=== PATIENT | female | born 1945 | race Caucasian/White ===

== ENCOUNTER → 2016-06-22 | Outpatient (CLI) | payer OTHER, MEDICARE ==
[~2016-06-22] MED LIST: ABILIFY2 MG PO; ACETAMINOPHEN PO; ALBUTEROL17 GM INH; AMITRIPTYLINE H50 MG PO; AMITRYPTYLINE; AMITRYPTYLINE PO; ANTI-DIARRHEAL2 M1 PO; ANTIDIARRHEAL2 MG PO; ASPIRIN325 M1 PO; ASPIRIN81 M1 PO; ASPIRIN81 M2 PO; ASPIRIN81 MG PO; BENTYL20 MG; BRILINTA90 MG PO; CIPRO PO; CLARITIN D PO; CLARITIN10 MG PO; CLEOCIN HCL300 M1 PO; CLOPIDOGREL75 MG PO; COREG3.125 M1 PO; DESYREL100 MG PO; DITROPAN XL5 M2 PO; DITROPAN5 MG PO; DYAZIDE 37.5/251 CAP; DYAZIDE 37.5/251 CAP PO; GLUCOPHAGE XR500 MG; GLUCOPHAGE XR500 MG PO; GLUCOTROL PO; GLYNASE PO; HUMALOG MI100 UNIT/2; HUMALOG MIX 75/10 ML SUBQ; HUMALOG MIX 75/23 ML SUBQ; HUMALOG100 U/M2 SUBQ; HUMALOG100 UNIT/1 SUBQ; HUMULIN 70100 UNIT/1 SUBQ; HYDROCHLOROTHIA25 MG PO; HYDROXYZINE HCL25 M1 PO; IBUPROFEN PO; IMDUR PO; IMDUR-ER30 M1 PO; JANUVIA50 MG PO; JENTADUETO 2.51 EAC2 PO; LAMICTAL PO; LAMICTAL XR200 MG PO; LAMICTAL100 MG PO; LAMICTAL150 MG PO; LAMOTRIGINE200 MG PO; LASIX PO; LIPITOR80 MG PO; LISINOPRIL; LISINOPRIL PO; LISINOPRIL10 MG PO; LISINOPRIL20 MG PO; LITHIUM CARBON300 M2 PO; LOMOTIL 2.5-0.1 EACH PO; LOMOTIL WHITE2.5 M1 PO; LORTAB 7.5-5001 TAB; LORTAB 7.5-5001 TAB PO; METFORMIN HCL500 M1 PO; METFORMIN PO; METOPROLOL TART25 MG PO; MILK OF MAGNESIA PO; NEURONTIN; NEURONTIN PO; NEURONTIN300 MG PO; NEURONTIN600 MG PO; NEXIUM PO; NITROGLYCERIN0.4 MG PO; NITROGLYGERIN0.4 MG SL; NORVASC PO; PATIENT'S PHARMACY; PAXIL PO; PERCOCET 5-3251 TAB PO; PRAVACHOL PO; PRAVASTATIN SOD20 MG PO; PRINIVIL10 MG PO; PRINIVIL20 M1 PO; SEROQUEL XR300 MG PO; SIMVASTATIN40 MG PO; TRAZODONE HCL150 MG PO; ULTRAM PO; VICODIN PO; VITAMIN D50000 UNIT PO; ZOFRAN ODT4 MG SL; ZOFRAN ODT4 MG/UDTAB PO
[2016-06-22 16:57] LABS: CHOLESTEROL 210 mg/dL (0-200); GLUCOSE FASTING 155 mg/dL (70-110); HDL CHOLESTEROL 39 mg/dL (35-95); LDL CHOLESTEROL 123 mg/dL (-130); LDL/HDL RATIO 3 RATIO (0-4); TRIGLYCERIDES 238 mg/dL (10-160)
== END | disposition home or self-care (01) ==
LOC: CLAB 14:18
DX: I21.4 Non-ST elevation (NSTEMI) myocardial infarction (principal)
CPT/HCPCS: 36415; 80061; 82947; 83036; 86140

== ENCOUNTER 2016-08-10 13:25 | Emergency (ER) | payer OTHER, MEDICARE ==
[2016-08-10 13:15] LABS: BASOPHIL% 0.6 % (0-2.5); EOSINOPHIL# 0.2 X10e3 (0-0.7); EOSINOPHIL% 4.4 % (0.0-7.0); HEMATOCRIT 37.8 % (35.0-45.0); HEMOGLOBIN 12.3 gm/dL (12.0-16.0); LYMPHOCYTE# 1.8 X10e3 (1.0-3.5); LYMPHOCYTE% 39.4 % (17.0-45.0); MEAN CELL VOLUME 97.3 FL (83-96); MEAN CORPUSCULAR HEMOGLOBIN 31.6 PG (28-34); MEAN CORPUSCULAR HGB CONC 32.5 g/dL (30-36); MEAN PLATELET VOLUME 7.3 FL (6.5-11.5); MONOCYTE# 0.4 X10e3 (0-1.0); MONOCYTE% 8.6 % (3.0-12.0); NEUTROPHIL# 2.2 X10e3 (1.5-7.1); PLATELET COUNT 201 X10e3 (140-420); RED BLOOD COUNT 3.88 X10e (3.90-5.30); RED CELL DISTRIBUTION WIDTH 14.1 % (11.0-15.5); WHITE BLOOD COUNT 4.6 X10e3 (4.0-10.5)
[2016-08-10 13:16] LABS: DIFF IND NO
[~2016-08-10 13:25] MED LIST changes: -ABILIFY2 MG PO; -ASPIRIN81 M2 PO; -ASPIRIN81 MG PO; -BRILINTA90 MG PO; -CLOPIDOGREL75 MG PO; -COREG3.125 M1 PO; -DITROPAN5 MG PO; -HUMALOG100 UNIT/1 SUBQ; -HYDROCHLOROTHIA25 MG PO; -IMDUR PO; -IMDUR-ER30 M1 PO; -LAMICTAL PO; -LAMICTAL100 MG PO; -LIPITOR80 MG PO; -LOMOTIL 2.5-0.1 EACH PO; -NITROGLYCERIN0.4 MG PO; -NITROGLYGERIN0.4 MG SL; -NORVASC PO; -PATIENT'S PHARMACY; -PRINIVIL10 MG PO; -ZOFRAN ODT4 MG SL
[2016-08-10 13:42] LABS: ALBUMIN SERUM 4.1 g/dL (3.5-5.0); ALKALINE PHOSPHATASE 63 U/L (32-92); ALT (SGPT) 14 U/L (10-40); AST (SGOT) 18 U/L (10-42); BILIRUBIN, DIRECT <0.1 mg/dL (0.0-0.2); BILIRUBIN,INDIRECT 0.5 mg/dL (0.0-0.9); BILIRUBIN,TOTAL 0.6 mg/dL (0.2-2.0); BLOOD UREA NITROGEN 30 mg/dL (9-23); CALCIUM SERUM 9.3 mg/dL (8.4-10.2); CARBON DIOXIDE 24 mmol/L (22-31); CHLORIDE 106 mmol/L (100-111); CREATININE SERUM 1.2 mg/dL (0.6-1.4); GLOM FILT RATE Estimated 46.1 mL/min (>60); GLUCOSE FASTING 144 mg/dL (70-110); POTASSIUM 4.9 mmol/L (3.5-5.1); PROTEIN TOTAL SERUM 7.4 g/dL (6.0-8.3); SODIUM 138 mmol/L (135-145)
== END 2016-08-10 14:04 | disposition home or self-care (01) ==
LOC: CED 13:25
PROVIDERS: Emergency Medicine
DX: Z71.1 Person with feared health complaint in whom no diagnosis is made (principal); I10 Essential (primary) hypertension; Z90.49 Acquired absence of other specified parts of digestive tract; Z88.2 Allergy status to sulfonamides; Z88.8 Allergy status to other drugs, medicaments and biological substances
CPT/HCPCS: 36415; 80048; 80076; 85025; 99283

== ENCOUNTER 2016-09-10 14:49 | Emergency (ER) | payer OTHER, MEDICARE ==
--- NOTE | ~2016-09-10 | EKG ---
PATIENT: SAE ORTEGA UNIT #: [id number] Ventricular Rate: 58 BPM Atrial Rate: 58 BPM P-R Interval: 152 ms QRS Duration: 84 ms Q-T Interval: 406 ms QTC Calculation(Bezet): 398 ms P [place]: 34 degrees Calculated R [place]: -22 degrees Calculated T [place]: 26 degrees Diagnosis Line: Sinus bradycardia Diagnosis Line: Otherwise normal ECG Diagnosis Line: When compared with ECG of 19-APR-2016 14:31, Diagnosis Line: No significant change was found Diagnosis Line: Confirmed by MISAEL HOGAN MD ([id number]) on Diagnosis Line: 09/14/2016 3:11:58 PM INTERPRETING MD: SAMIRA CROWELL
--- NOTE | ~2016-09-10 | EKG ---
PATIENT: SAE ORTEGA UNIT #: [id number] Ventricular Rate: 54 BPM Atrial Rate: 54 BPM P-R Interval: 160 ms QRS Duration: 84 ms Q-T Interval: 430 ms QTC Calculation(Bezet): 407 ms P [place]: 45 degrees Calculated R [place]: -16 degrees Calculated T [place]: 28 degrees Diagnosis Line: Sinus bradycardia Diagnosis Line: Otherwise normal ECG Diagnosis Line: When compared with ECG of 10-SEP-2016 14:49, Diagnosis Line: (unconfirmed) Diagnosis Line: No significant change was found Diagnosis Line: Confirmed by MISAEL HOGAN MD ([id number]) on Diagnosis Line: 09/14/2016 3:12:49 PM INTERPRETING MD: SAMIRA CROWELL
--- NOTE | ~2016-09-10 | CR63 ---
[facility] A Service of [facility] & [facility] RADIOLOGY TEXT RESULTS PATIENT: SAE ORTEGA LOCATION: [facility] : 47 UNIT #: [id number] AGE: [address]: Emanuel Cabello MD SEX: F ORDER DR: [id number] [facility] [address] [place], [place] [address] [id number] E MR#: [id number] Acc #: [id number] NAME: SAE ORTEGA. : 1945 SEX: F STUDY DATE/TIME: 09/10/2016 17:23 UNIT: [facility] ROOM: STUDY DESCRIPTION: CR Chest 2 View Attending Physician: Emanuel Cabello M.D. Ordering Physician: Emanuel Cabello M.D. Primary Care Physician: Amirah Fernandez M.D. MEDICAL IMAGING REPORT This report is preliminary unless electronic signature is present EXAM PA and lateral chest 09/10/2016 at 17:23 HISTORY Chest pain. Pinching of the heart. Symptoms have been present for 2 days. Additional history of shortness of breath. TECHNIQUE AP portable chest 04/19/2016. FINDINGS Clear lungs. Normal heart size and no pleural effusion or pneumothorax. Degenerative endplate spurring in the thoracic spine. Post spinal fusion changes lumbar spine. No acute osseous abnormality. IMPRESSION 1. No acute cardiopulmonary findings. Dictated by... Rita Bravo M.D. THIS IS AN ELECTRONICALLY VERIFIED REPORT Rita Bravo M.D. at 09/14/2016 8:40 AM LLH/prabhakar TD: 09/10/2016 23:19 JOB #: [id number] MEDICAL IMAGING REPORT Page 1 of 1 COPY
[2016-09-10 15:55] LABS: BASOPHIL% 0.5 % (0-2.5); EOSINOPHIL# 0.2 X10e3 (0-0.7); HEMATOCRIT 38.7 % (35.0-45.0); HEMOGLOBIN 12.8 gm/dL (12.0-16.0); LYMPHOCYTE# 2.3 X10e3 (1.0-3.5); LYMPHOCYTE% 39.7 % (17.0-45.0); MEAN CELL VOLUME 98.6 FL (83-96); MEAN CORPUSCULAR HEMOGLOBIN 32.7 PG (28-34); MEAN CORPUSCULAR HGB CONC 33.2 g/dL (30-36); MEAN PLATELET VOLUME 7.5 FL (6.5-11.5); MONOCYTE# 0.5 X10e3 (0-1.0); MONOCYTE% 8.8 % (3.0-12.0); NEUTROPHIL# 2.8 X10e3 (1.5-7.1); PLATELET COUNT 211 X10e3 (140-420); RED BLOOD COUNT 3.92 X10e (3.90-5.30); WHITE BLOOD COUNT 5.9 X10e3 (4.0-10.5)
[2016-09-10 15:58] LABS: DIFF IND NO
[2016-09-10 16:19] LABS: ALKALINE PHOSPHATASE 58 U/L (32-92); ALT (SGPT) 13 U/L (10-40); AST (SGOT) 20 U/L (10-42); BILIRUBIN,TOTAL 0.6 mg/dL (0.2-2.0); BLOOD UREA NITROGEN 21 mg/dL (9-23); CALCIUM SERUM 9.1 mg/dL (8.4-10.2); CARBON DIOXIDE 21 mmol/L (22-31); CHLORIDE 106 mmol/L (100-111); GLOM FILT RATE Estimated 57.5 mL/min (>60); GLUCOSE FASTING 130 mg/dL (70-110); POTASSIUM 4.3 mmol/L (3.5-5.1); SODIUM 137 mmol/L (135-145)
[2016-09-10 16:20] LABS: BILIRUBIN, DIRECT <0.1 mg/dL (0.0-0.2); BILIRUBIN,INDIRECT 0.5 mg/dL (0.0-0.9)
[2016-09-10 16:36] LABS: POC - CKMB <1.0 ng/mL (0.0-7.9); POC - TROPONIN <0.05 ng/mL (<=0.05)
[2016-09-10 19:22] LABS: POC - CKMB 1.3 ng/mL (0.0-7.9); POC - TROPONIN <0.05 ng/mL (<=0.05)
== END 2016-09-10 20:05 | disposition home or self-care (01) ==
LOC: CED 14:49
PROVIDERS: Emergency Medicine
DX: R07.89 Other chest pain (principal); M79.7 Fibromyalgia; E11.9 Type 2 diabetes mellitus without complications; I12.9 Hypertensive chronic kidney disease with stage 1 through stage 4 chronic kidney disease, or unspecified chronic kidney disease; N18.9 Chronic kidney disease, unspecified; E78.5 Hyperlipidemia, unspecified; Z88.2 Allergy status to sulfonamides; Z88.8 Allergy status to other drugs, medicaments and biological substances
CPT/HCPCS: 36415; 71020; 80048; 80076; 82553; 84484; 85025; 93005; 99284

== ENCOUNTER 2016-10-07 18:37 | Inpatient (IN) | payer OTHER, MEDICARE ==
--- NOTE | ~2016-10-07 | CO ---
Unit #: [id number] #: [id number] Patient: SAE ORTEGA [id number] [address] [place], [place] [address] [id number] I MR#: [id number] NAME: SAE ORTEGA. ROOM: 572 Age: 71 Sex: F Admission Date: 10/07/2016 : 1945 Attending Physician: Fouzia Miller M.D. Primary Care Physician: Amirah Fernandez M.D. Requesting Physician: Hayes Leonard M.D. Consultation Date: 10/11/2016 CONSULTATION REPORT REASON FOR CONSULTATION Atypical chest pain. HISTORY OF PRESENTING ILLNESS Ms. Pike is a 71-year-old female. She came with an ST elevation [place] yesterday and had a cardiac procedure done including stent placement. She has continued Brilinta. She continues to have lower chest pain which is constant since the procedure and not related to exercise or feeding. She has no nausea, vomiting or dysphagia. She has mild epigastric discomfort also. She has been constipated and has not had a bowel movement in over a week. Denies any bleeding. PAST HISTORY Significant for: 1. Coronary artery disease. 2. History of GERD. Last EGD in 2014 was noted. 3. History of anxiety. 4. Bipolar disorder. 5. Chronic kidney disease. 6. Diabetes mellitus type 2. 7. She is status post cholecystectomy in 1980. SOCIAL HISTORY Denies smoking or alcohol or drug abuse. FAMILY HISTORY No history of colon cancer in the family. REVIEW OF SYSTEMS A complete ten point review of systems was done which is unremarkable other than as mentioned above. PHYSICAL EXAMINATION VITAL SIGN: Stable, afebrile. No acute distress. HEENT: Pupils equal and reactive. Sclerae anicteric. Oral mucosa moist. NECK: No JVD, no lymphadenopathy. CHEST: Clear to auscultation, a few scattered rhonchi. CARDIOVASCULAR SYSTEM: Regular rate and rhythm. No murmurs. ABDOMEN: Soft, nontender, nondistended. EXTREMITIES: Without clubbing, cyanosis or edema. NEUROLOGICAL: Intact. SKIN: Warm and dry. DIAGNOSTIC STUDIES Unit #: [id number] #: [id number] Patient: SAE ORTEGA LABORATORY: BUN and creatinine 27/1.1. LFTs are normal. Coags are normal. CBC with a hemoglobin of 10.2, dropped from 13.2. Platelet count and white count are normal. ASSESSMENT AND PLAN 1. Patient with what appears to be atypical chest pain after recent myocardial infarction and cardiac procedure. She does have a history of gastroesophageal reflux disease and EGD findings suggested the same in 2013. I will put her on twice a day IV Protonix. Given the recent myocardial infarction, I will avoid, if possible, the upper endoscopy. However, if the patient is persistent or if there is any further drop in hemoglobin, it will be considered. 2. Constipation: Start on MiraLAX. 3. Coronary artery disease, ST elevation myocardial infarction as well as status post stenting. Thank you, Dr. Leonard, for this interesting consult. Will follow along. Dictated by... Tobias Eldridge/nidia TD: 10/13/2016 07:31 JOB #: [id number] CONSULTATION REPORT Page 1 of 1 X Travis Tirado MD CONSULTATION REPORT
--- NOTE | ~2016-10-07 | DS ---
Unit #: [id number] #: [id number] Patient: SAE ORTEGA [id number] [address] [address] [id number] I MR#: [id number] NAME: SAE ORTEGA ROOM: 572 Age: 71 Sex: F Admission Date: 10/07/2016 : 1945 Discharge Date: 10/15/2016 Attending Physician: Fouzia Miller M.D. Primary Care Physician: Amirah Fernandez M.D. DISCHARGE SUMMARY DISCHARGE DIAGNOSES 1. Acute non ST elevation myocardial infarction, status post percutaneous coronary intervention and drug-eluting stent to first obtuse marginal and mid circumflex. 2. Cardiac cath, October 07, 2016, revealed: Left main normal, mid left anterior descending stent was patent, mid circumflex 99%, and right coronary artery was normal. 3. Asymptomatic bradycardia. 4. Recurrent chest pain. 5. Status post esophagogastroduodenoscopy on October 13, 2016, which showed gastritis and small gastric varices. 6. Common bile duct dilatation with a negative gastrointestinal workup, not clinically significant per GI. 7. Hypertension. 8. Hyperlipidemia. 9. Diabetes mellitus. 10. Chronic kidney disease. 11. Obstructive sleep apnea. 12. Echo, October 09, 2016, revealed a left ventricular ejection fraction 50% to 55% and grade 1 diastolic dysfunction. DISCHARGE MEDICATIONS 1. Aspirin 81 mg by mouth once a day. 2. Brilinta 90 mg by mouth twice a day. 3. Nexium 40 mg t.i.d. 4. Imdur 30 mg p.o. once a day. 5. Nitroglycerin sublingual as needed for chest pain. 6. Norvasc 5 mg p.o. once a day. 7. Jentadueto 2.5 mg/1000 mg tablet one by mouth twice a day. 8. Ditropan 5 mg p.o. twice a day. 9. Lisinopril 10 mg p.o. once a day. 10. Humalog subcutaneous a.c. and at bedtime. HOSPITAL COURSE This is a 71-year-old female known to Dr. Leonard with a history of non ST elevation myocardial infarction in February 2016, where she underwent angioplasty with drug-eluting stents to the proximal LAD and first obtuse marginal. She also has a history of hypertension, hyperlipidemia, diabetes, and chronic kidney disease. She presented to the ER with complaints of chest pain intermittently since August, described as substernal chest dull aching pain that radiates to her left shoulder and arm as well as her back and associated with diaphoresis and occasional dyspnea. In addition, she reported some abdominal discomfort and nausea. The chest pain occurred at rest and on exertion. Troponin in the Unit #: [id number] #: [id number] Patient: SAE ORTEGA emergency room was initially 1.16 but peaked at 6.97. Her EKG had septal Q waves that did resolve on repeat EKG. She was given aspirin and heparin and nitroglycerin drips. She was transferred to the intensive care unit with plans for a cardiac cath. On October 08, 2016, she underwent a cardiac cath which revealed normal left main, patent stent in the mid LAD, mid circumflex with 99% stenosis which was the culprit vessel, and RCA was normal. She underwent successful PCI of first obtuse marginal with a 3.0 x 28 Xience drug-eluting stent, post dilation done with 3.5 Noncompliant balloon. Successful POBA of mid left circumflex with 2.0 x 15 NC balloon. Kissing balloon angioplasty of the mid left circumflex and OM-1 with 2.0 x 15 and 2.5 x 15 Noncompliant balloon respectively. Post intervention FILOMENA-3 flow restored in both vessels. Her Plavix was discontinued as she may be a Plavix nonresponder. She was started on Brilinta and will continue aspirin and Brilinta uninterrupted for at least one year as well as high-dose statin. A 2D echocardiogram done on October 09, 2016, revealed a normal ejection fraction of 50% to 55% with grade 1 diastolic dysfunction. She continued to have some substernal epigastric pain with questionable etiology. GI consult was placed. An EGD was done which showed gastritis and small gastric varices. An ultrasound of the abdomen reveled common bile duct dilatation which was deemed not clinically significant per GI. It was recommended she be discharged home on a PPI. She had some asymptomatic bradycardia while sleeping. Patient states she does have a history of sleep apnea but was unable to wear her CPAP machine. Her beta sony was stopped due to her bradycardia. Today, her chest pain has resolved. Her heart rate and blood pressure are stable. She will be discharged home on dual-antiplatelet therapy, statin, CHRISTINE, and calcium channel sony. She will not be discharged on a beta sony due to her bradycardia. We will plan to restart beta sony at a later date if her heart rate increases. She will follow up with Dr. Leonard on November 16 at 3:30. Instructed to follow up with her primary care doctor in two weeks. She is to follow up with Dr. Calle's group who she saw in the past for evaluation of sleep apnea. The patient verbalizes an understanding of this. Cardiac rehab has been consulted. Post cath orders were given to patient as well. Dictated by... Laly Mario APRN for Hayes Leonard M.D. L[place]/maggy TD: 10/18/2016 09:23 JOB #: [id number] DISCHARGE SUMMARY Page 1 of 1 X X DISCHARGE SUMMARY
--- NOTE | ~2016-10-07 | EKG ---
PATIENT: SAE ORTEGA UNIT #: [id number] Ventricular Rate: 57 BPM Atrial Rate: 57 BPM P-R Interval: 166 ms QRS Duration: 96 ms Q-T Interval: 436 ms QTC Calculation(Bezet): 424 ms P [place]: 49 degrees Calculated R [place]: -7 degrees Calculated T [place]: 98 degrees Diagnosis Line: Sinus bradycardia Diagnosis Line: Abnormal QRS-T angle, consider primary T wave Diagnosis Line: abnormality Diagnosis Line: Abnormal ECG Diagnosis Line: When compared with ECG of 09-OCT-2016 17:08, Diagnosis Line: (unconfirmed) Diagnosis Line: No significant change was found Diagnosis Line: Confirmed by ROBBY BARONE MD ([id number]) on Diagnosis Line: 10/10/2016 10:48:03 PM INTERPRETING MD: KJ
--- NOTE | ~2016-10-07 | CR72 ---
[facility] A Service of [facility] & [facility] RADIOLOGY TEXT RESULTS PATIENT: SAE ORTEGA LOCATION: [place] [address] : [birth year] UNIT #: [id number] AGE: [address]: Fouzia Miller MD SEX: F ORDER DR: [id number] [facility] [address] [place], [place] [address] [id number] I MR#: [id number] Acc #: [id number] NAME: SAE ORTEGA. : 1945 SEX: F STUDY DATE/TIME: 10/07/2016 19:38 UNIT: [facility] ROOM: [facility] STUDY DESCRIPTION: CR Chest Single View Portable Attending Physician: Juancarlos Canela Ordering Physician: Caleb Gay Primary Care Physician: Amirah Fernandez M.D. MEDICAL IMAGING REPORT This report is preliminary unless electronic signature is present EXAM Portable chest HISTORY Left side chest pain and left arm pain for 3 days. FINDINGS A single AP portable view of the chest shows both lungs to be clear. The heart is normal in size. The mediastinal contour is normal. No significant bone abnormalities are seen. IMPRESSION Normal portable chest. Dictated by... Darien Gonzalez M.D. THIS IS AN ELECTRONICALLY VERIFIED REPORT Darien Gonzalez M.D. at 10/08/2016 2:36 PM DFElva/helio TD: 10/08/2016 00:51 JOB #: [id number] MEDICAL IMAGING REPORT Page 1 of 1 COPY
--- NOTE | ~2016-10-07 | EKG ---
PATIENT: SAE ORTEGA UNIT #: [id number] Ventricular Rate: 52 BPM Atrial Rate: 52 BPM P-R Interval: 160 ms QRS Duration: 86 ms Q-T Interval: 482 ms QTC Calculation(Bezet): 448 ms P [place]: 56 degrees Calculated R [place]: -5 degrees Calculated T [place]: 84 degrees Diagnosis Line: Sinus bradycardia Diagnosis Line: Low voltage QRS Diagnosis Line: Borderline ECG Diagnosis Line: When compared with ECG of 08-OCT-2016 06:13, Diagnosis Line: (unconfirmed) Diagnosis Line: No significant change was found Diagnosis Line: Confirmed by ROBBY BARONE MD ([id number]) on Diagnosis Line: 10/09/2016 3:00:05 PM INTERPRETING : KJ
--- NOTE | ~2016-10-07 | OR ---
Unit #: [id number] #: [id number] Patient: SAE ORTEGA [id number] [address] [address] [id number] I MR#: [id number] NAME: SAE ORTEGA. ROOM: 572 Date of Procedure: 10/13/2016 Admission Date: 10/07/2016 Surgeon: Travis Tirado M.D. : 1945 Attending Physician: Fouzia Miller M.D. Primary Care Physician: Amirah Fernandez M.D. OPERATIVE REPORT PROCEDURE PERFORMED Esophagogastroduodenoscopy to descending duodenum. INDICATIONS FOR PROCEDURE Atypical chest pain, epigastric discomfort, undergoing evaluation with upper endoscopy. MEDICATIONS Monitored anesthesia. POSTOPERATIVE FINDINGS 1. Normal esophagus. 2. Mild gastritis. 3. Early gastric varices. 4. Normal duodenum and distal duodenum. PLAN 1. Liver workup. 2. PPIs to continue. DESCRIPTION OF PROCEDURE The patient was explained of the procedure, risks, and benefits along with risks and benefits of anesthesia. She was brought to the endoscopy room. Propofol anesthesia was given. Bite block was placed. The scope was passed down the mouth into the esophagus, stomach, duodenum, and distal duodenum. Findings as described. The scope was gently pulled out. She tolerated it well. Dictated by... Tobias Eldridge/tia TD: 10/14/2016 01:31 JOB #: [id number] CC: Hayes Leonard M.D. Unit #: [id number] #: [id number] Patient: SAE ORTEGA OPERATIVE REPORT Page 1 of 1 X Travis Tirado MD X PROCEDURE OPERATIVE NOTE
--- NOTE | ~2016-10-07 | EKG ---
PATIENT: SAE ORTEGA UNIT #: [id number] Ventricular Rate: 55 BPM Atrial Rate: 55 BPM P-R Interval: 148 ms QRS Duration: 86 ms Q-T Interval: 450 ms QTC Calculation(Bezet): 430 ms P [place]: 57 degrees Calculated T [place]: 84 degrees Diagnosis Line: Sinus bradycardia Diagnosis Line: Nonspecific ST abnormality Diagnosis Line: Abnormal ECG Diagnosis Line: When compared with ECG of 08-OCT-2016 17:49, Diagnosis Line: (unconfirmed) Diagnosis Line: No significant change was found Diagnosis Line: Confirmed by ROBBY BARONE MD ([id number]) on Diagnosis Line: 10/10/2016 10:37:10 PM INTERPRETING MD: KJ
--- NOTE | ~2016-10-07 | EKG ---
PATIENT: SAE ORTEGA UNIT #: [id number] Ventricular Rate: 50 BPM Atrial Rate: 50 BPM P-R Interval: 168 ms QRS Duration: 96 ms Q-T Interval: 446 ms QTC Calculation(Bezet): [address]: 51 degrees Calculated R [place] [address]: -6 degrees Calculated T [place] [address]: 85 degrees Diagnosis Line: Sinus bradycardia Diagnosis Line: Otherwise normal ECG Diagnosis Line: When compared with ECG of 10-OCT-2016 07:09, Diagnosis Line: No significant change was found Diagnosis Line: Confirmed by MOOSE VALADEZ MD ([id number]) on 10/12/2016 Diagnosis Line: 5:39:20 AM INTERPRETING MD: RORY CROWELL
--- NOTE | ~2016-10-07 | EKG ---
PATIENT: SAE ORTEGA UNIT #: [id number] Ventricular Rate: 57 BPM Atrial Rate: 57 BPM P-R Interval: 158 ms QRS Duration: 90 ms Q-T Interval: 436 ms QTC Calculation(Bezet): 424 ms P [place]: 50 degrees Calculated R [place]: 3 degrees Calculated T [place]: 87 degrees Diagnosis Line: Sinus bradycardia Diagnosis Line: Low voltage QRS Diagnosis Line: Borderline ECG Diagnosis Line: When compared with ECG of 09-OCT-2016 06:55, Diagnosis Line: (unconfirmed) Diagnosis Line: No significant change was found Diagnosis Line: Confirmed by ROBBY BARONE MD ([id number]) on Diagnosis Line: 10/10/2016 10:39:15 PM INTERPRETING MD: KJ
--- NOTE | ~2016-10-07 | EKG ---
PATIENT: SAE ORTEGA UNIT #: [id number] Ventricular Rate: 52 BPM Atrial Rate: 52 BPM P-R Interval: 158 ms QRS Duration: 86 ms Q-T Interval: 488 ms QTC Calculation(Bezet): 453 ms P [place]: 52 degrees Calculated R [place]: -3 degrees Calculated T [place]: 52 degrees Diagnosis Line: Sinus bradycardia Diagnosis Line: Otherwise normal ECG Diagnosis Line: When compared with ECG of 07-OCT-2016 19:00, Diagnosis Line: QT has lengthened Diagnosis Line: Confirmed by ROBBY BARONE MD ([id number]) on Diagnosis Line: 10/09/2016 2:52:12 PM INTERPRETING MD: KJ
--- NOTE | ~2016-10-07 | US6 ---
[facility] A Service of [facility] & [facility] RADIOLOGY TEXT RESULTS PATIENT: SAE ORTEGA LOCATION: [facility] 572-01 : [birth year] UNIT #: [id number] AGE: [address]: Fouzia Miller MD SEX: F ORDER DR: [id number] [facility] [address] [place], [place] [address] [id number] MR#: [id number] Acc #: [id number] NAME: SAE ORTEGA. : 1945 SEX: F STUDY DATE/TIME: 10/13/2016 14:39 UNIT: [facility] ROOM: [facility] STUDY DESCRIPTION: US Abdominal Limited Attending Physician: Fouzia Miller M.D. Ordering Physician: Travis Tirado M.D. Primary Care Physician: Amirah Fernandez M.D. MEDICAL IMAGING REPORT This report is preliminary unless electronic signature is present EXAM Right upper quadrant ultrasound 10/13/2016 HISTORY Cirrhosis. Observation for hepatocellular carcinoma. Cholecystectomy 20 years ago. FINDINGS The liver demonstrates a somewhat coarsened echotexture but demonstrates no cystic or solid mass lesions. The intrahepatic bile ducts are not dilated. The gallbladder surgically absent as per patient history. The common duct demonstrates post cholecystectomy dilatation to 9 mm. The pancreas and right kidney are normal. IMPRESSION 1. Coarsened liver echotexture. No cystic or solid mass lesions were identified within the liver. 2. Surgical absence of the gallbladder. 3. Post cholecystectomy dilatation of the common bile duct to 9 mm. Dictated by... Paco Nielsen M.D. THIS IS AN ELECTRONICALLY VERIFIED REPORT Paco Nielsen M.D. at 10/15/2016 8:19 AM KRT/to TD: 10/13/2016 17:31 JOB #: [id number] MEDICAL IMAGING REPORT Page 1 of 1 COPY
--- NOTE | ~2016-10-07 | HP ---
Unit #: [id number] #: [id number] Patient: SAE ORTEGA [id number] [facility] [place] [facility]. [place], [place] [address] [id number] MR#: [id number] NAME: SAE ORTEGA. ROOM: [facility] Age: 71 Sex: F Admission Date: 10/07/2016 : 1945 Attending Physician: Giles Canela M.D. Primary Care Physician: Amirah Fernandez M.D. HISTORY AND PHYSICAL HISTORY OF PRESENT ILLNESS This is a 71-year-old white female who is known to Dr. Leonard and has a history of a non ST elevation myocardial infarction in 02/2016 where she underwent angioplasty with drug-eluting stents to the proximal LAD and first obtuse marginal branch. She is known to have hypertension, hyperlipidemia, diabetes, and chronic kidney disease. She presents to the emergency room with a complain of chest pain. Since August she has had intermittent episodes of substernal chest dull aching pain that is radiating to her left shoulder and arm, into her back, associated with diaphoresis and occasional dyspnea. She reports some abdominal discomfort and nausea. Chest pain occurs at rest and on exertion. She was seen in the emergency room in August but there was no elevation of Troponin or EKG changes to suggest an acute event. Over the last three days her chest pain has worsened, prompting her to come to the emergency room for evaluation. In the emergency room initial troponin was 1.16 but peaked at 6.97. Her presenting electrocardiogram shows septal Q waves that resolved on repeat electrocardiogram. She was treated with aspirin and started on heparin and nitroglycerin drip and monitored in the Intensive Care Unit. PAST MEDICAL HISTORY 1. Non ST elevation myocardial infarction 02/2016, status post cardiac catheterization on 03/05/[address] Leonard at [facility], that revealed left main normal, LAD 95% just distal to the diagonal. Circumflex artery first marginal branch with 99% stenosis. Right coronary artery dominant vessel normal. Ejection fraction of 55%. 2. Status post PCI with drug eluting stents to the proximal LAD and first obtuse marginal branch 03/05/[address] Leonard. 3. 2D echocardiogram 03/04/2016 showed an ejection fraction of 60% with impaired left ventricular relaxation. Normal valves. 4. Hypertension. 5. Hyperlipidemia. 6. Diabetes, type 2. 7. Chronic kidney disease. 8. Bipolar disorder. 9. Peripheral neuropathy. 10. Anxiety. 11. Nonsmoker. PAST SURGICAL HISTORY 1. Back surgery. 2. Cervical conization. 3. Cholecystectomy. 4. Tubal ligation. Unit #: [id number] #: [id number] Patient: SAE ORTEGA SOCIAL HISTORY The patient is and retired toddler teacher. She has never smoked. She denies illicit drug and alcohol use. FAMILY HISTORY Father had a permanent pacemaker. Mother had diabetes. No coronary artery disease in her siblings. Had a sister who had a PFO that was repaired. ALLERGIES Sulfa and naproxen. HOME MEDICATIONS 1. Carvedilol 3.125 mg b.i.d. 2. Hydrochlorothiazide 25 mg daily. 3. Lipitor 80 mg q.h.s. 4. Aspirin 81 mg daily. 5. Plavix 75 mg daily. 6. Imdur 30 mg daily. 7. Lomotil 1 tablet q.8 hours p.r.n. 8. Trazodone 150 mg q.h.s. 9. Lamictal 200 mg q.h.s. 10. Nexium 40 mg t.i.d. 11. Zofran 4 mg q.4 hours p.r.n. 12. Ditropan 5 mg b.i.d. 13. Lisinopril 20 mg daily. 14. Linagliptin/metformin 2.08/999 mg b.i.d. 15. Humalog per sliding scale a.c. and h.s. REVIEW OF SYSTEMS CONSTITUTIONAL: No complain of fever or chills. Has no weight gain or weight loss. HEENT: No headache or visual changes. Difficult swallowing. Negative for dizziness. CARDIOVASCULAR: Has chest pain as described in HPI. Denies palpitations. No paroxysmal nocturnal dyspnea or orthopnea. Denies syncope or near syncope. RESPIRATORY: Reports dyspnea that accompanies chest pain. No cough or hemoptysis. GASTROINTESTINAL: Positive for occasional abdominal discomfort and nausea. No constipation, hematochezia or melena. EXTREMITIES: Has occasional lower extremity edema. PHYSICAL EXAMINATION VITAL SIGNS: Blood pressure 139/60, heart rate 51, temperature 98.0, BMI 29. GENERAL APPEARANCE: This is a pleasant 71-year-old white female who is in no acute distress. NEUROLOGIC: She is awake, alert and oriented. There is no focal weaknesses. NECK: Trachea is midline. No thyromegaly or lymphadenopathy. No jugular venous distention. HEART: S1, S2 heart sounds are normal. No murmurs, rubs or clicks. Regular rate and rhythm. LUNGS: Clear without rales, rhonchi, wheezes. ABDOMEN: Soft, nontender but bowel sounds are present. EXTREMITIES: Without leg edema. SKIN: Warm and dry. Unit #: [id number] #: [id number] Patient: SAE ORTEGA DIAGNOSTIC STUDIES LABORATORY STUDIES: Glucose 160, BUN 21, creatinine 1.2, sodium 136, potassium 4.8. White count 5.5, hemoglobin 13.8, hematocrit 41.8, platelet count 238. Troponin 1.16 to 1.53 to 6.97 to 3.94. IMAGING STUDIES: Chest x-ray shows no active disease. CARDIOLOGY STUDIES: Electrocardiogram shows normal sinus rhythm with septal Q wave with questionable septal infarct. IMPRESSION 1. Acute non ST elevation myocardial infarction with peak troponin of 6.97. 2. History of myocardial infarction 02/2016, status post PCI with drug-eluting stent to the proximal LAD and first obtuse marginal branch. 3. Hypertension. 4. Hyperlipidemia. 5. Diabetes mellitus, type 2. 6. Preserved left ventricular systolic function, ejection fraction of 60% with diastolic dysfunction. 7. Chronic kidney disease. PLANS 1. The patient is admitted with acute non ST elevation myocardial infarction. Troponin is trending down. Needs a repeat cardiac catheterization to re-evaluate her coronary anatomy and for stent thrombosis. 2. Risk and benefits have been explained to the patient and she is agreeable. Will schedule for today. 3. Continue Nitroglycerin and heparin drips for now. 4. Will change Plavix to Brilinta. The patient is most likely a poor responder for Plavix. 5. financial reporting manager will obtain the patient's cost of Brilinta. 6. Lipid profile will be obtained. 7. Continued high intensity statin with Lipitor. 8. Daily aspirin. 9. CHRISTINE inhibitor is currently on hold. Will reassess renal function. If remain stable with restart CHRISTINE inhibitor at discharge, especially given the patient is a diabetic. 10. Possibly home in one to two days if stable. Dictated by Tariq Ash A.P.R.N. for Fouzia Miller M.D. AEP/ts TD: 10/08/2016 13:11 JOB #: [id number] CC: [facility] Hayes Leonard M.D. Unit #: [id number] #: [id number] Patient: KIMBERLYCRUZSAE Rebecca HISTORY AND PHYSICAL Page 1 of 1 X Tariq Ash APRN X HISTORY AND PHYSICAL
--- NOTE | ~2016-10-07 | EKG ---
PATIENT: SAE ORTEGA UNIT #: [id number] Ventricular Rate: 57 BPM Atrial Rate: 57 BPM P-R Interval: 150 ms QRS Duration: 90 ms Q-T Interval: 418 ms QTC Calculation(Bezet): 406 ms P [place]: 41 degrees Calculated R [place]: -26 degrees Calculated T [place]: 48 degrees Diagnosis Line: Sinus bradycardia Diagnosis Line: Nonspecific ST abnormality Diagnosis Line: Abnormal ECG Diagnosis Line: When compared with ECG of 10-SEP-2016 18:22, Diagnosis Line: No significant change was found Diagnosis Line: Confirmed by ROBBY BARONE MD ([id number]) on Diagnosis Line: 10/08/2016 6:53:19 AM INTERPRETING MD: KJ
[2016-10-07 19:33] LABS: BASOPHIL% 0.7 % (0-2.5); EOSINOPHIL# 0.1 X10e3 (0-0.7); EOSINOPHIL% 1.7 % (0.0-7.0); HEMATOCRIT 41.8 % (35.0-45.0); HEMOGLOBIN 13.8 gm/dL (12.0-16.0); LYMPHOCYTE# 1.6 X10e3 (1.0-3.5); LYMPHOCYTE% 29.4 % (17.0-45.0); MEAN CELL VOLUME 99.2 FL (83-96); MEAN CORPUSCULAR HEMOGLOBIN 32.8 PG (28-34); MEAN CORPUSCULAR HGB CONC 33.1 g/dL (30-36); MEAN PLATELET VOLUME 7.8 FL (6.5-11.5); MONOCYTE# 0.4 X10e3 (0-1.0); MONOCYTE% 6.8 % (3.0-12.0); NEUTROPHIL# 3.4 X10e3 (1.5-7.1); NEUTROPHIL% 61.4 % (40-75); PLATELET COUNT 238 X10e3 (140-420); RED BLOOD COUNT 4.22 X10e (3.90-5.30); RED CELL DISTRIBUTION WIDTH 13.6 % (11.0-15.5); WHITE BLOOD COUNT 5.5 X10e3 (4.0-10.5)
[2016-10-07 19:34] LABS: DIFF IND NO
[2016-10-07 19:36] LABS: POC - CKMB 15.7 ng/mL (0.0-7.9); POC - TROPONIN 1.16 ng/mL (<=0.05)
[2016-10-07 19:44] LABS: PARTIAL THROMBOPLASTIN TIME 24.7 SECONDS (23.5-31.3)
[2016-10-07 19:55] LABS: ALBUMIN SERUM 4.3 g/dL (3.5-5.0); BILIRUBIN, DIRECT 0.2 mg/dL (0.0-0.2); BILIRUBIN,INDIRECT 0.5 mg/dL (0.0-0.9); BILIRUBIN,TOTAL 0.7 mg/dL (0.2-2.0); BUN/CREATININE RATIO 17.5; CALCIUM SERUM 9.7 mg/dL (8.4-10.2); CREATININE SERUM 1.2 mg/dL (0.6-1.4); GLOM FILT RATE Estimated 46.1 mL/min (>60); POTASSIUM 4.8 mmol/L (3.5-5.1)
[2016-10-07] MEDS ORDERED: ASPIRIN81 MG PO (20:19)
[2016-10-07] MEDS ORDERED: HYDROCHLOROTHIA25 MG PO (20:19)
[2016-10-07] MEDS ORDERED: COREG3.125 M1 PO (20:19)
[2016-10-07] MEDS ORDERED: IMDUR-ER30 M1 PO (20:19)
[2016-10-07] MEDS ORDERED: CLOPIDOGREL75 MG PO (20:19)
[2016-10-07] MEDS ORDERED: LIPITOR80 MG PO (20:19)
[2016-10-07] MEDS ORDERED: TRAZODONE HCL150 MG PO (20:22)
[2016-10-07] MEDS ORDERED: LOMOTIL WHITE2.5 M1 PO (20:22)
[2016-10-07] MEDS ORDERED: LAMICTAL100 MG PO (20:22)
[2016-10-07] MEDS ORDERED: NEXIUM PO (20:23)
[2016-10-07] MEDS ORDERED: JENTADUETO 2.51 EAC2 PO (20:23)
[2016-10-07] MEDS ORDERED: LISINOPRIL20 MG PO (20:23)
[2016-10-07] MEDS ORDERED: ZOFRAN ODT4 MG SL (20:23)
[2016-10-07] MEDS ORDERED: DITROPAN5 MG PO (20:23)
[2016-10-07] MEDS ORDERED: HUMALOG100 UNIT/1 SUBQ (20:24)
[2016-10-07 21:08] LABS: POC - CKMB 13.2 ng/mL (0.0-7.9); POC - TROPONIN 1.53 ng/mL (<=0.05)
[2016-10-08 12:20] LABS: CHOLESTEROL 195 mg/dL (0-200); HDL CHOLESTEROL 40 mg/dL (35-95); LDL CHOLESTEROL 123 mg/dL (-130); LDL/HDL RATIO 3 RATIO (0-4); TRIGLYCERIDES 162 mg/dL (10-160)
[2016-10-08 13:45] LABS: BASOPHIL% 0.4 % (0-2.5); EOSINOPHIL# 0.1 X10e3 (0-0.7); EOSINOPHIL% 2.4 % (0.0-7.0); HEMATOCRIT 40.1 % (35.0-45.0); HEMOGLOBIN 13.2 gm/dL (12.0-16.0); LYMPHOCYTE# 2.1 X10e3 (1.0-3.5); LYMPHOCYTE% 36.7 % (17.0-45.0); MEAN CELL VOLUME 98.7 FL (83-96); MEAN CORPUSCULAR HEMOGLOBIN 32.5 PG (28-34); MEAN CORPUSCULAR HGB CONC 32.9 g/dL (30-36); MEAN PLATELET VOLUME 8.1 FL (6.5-11.5); MONOCYTE# 0.4 X10e3 (0-1.0); MONOCYTE% 6.2 % (3.0-12.0); NEUTROPHIL# 3.1 X10e3 (1.5-7.1); NEUTROPHIL% 54.3 % (40-75); PLATELET COUNT 208 X10e3 (140-420); RED BLOOD COUNT 4.07 X10e (3.90-5.30); RED CELL DISTRIBUTION WIDTH 13.9 % (11.0-15.5); WHITE BLOOD COUNT 5.7 X10e3 (4.0-10.5)
[2016-10-08 13:56] LABS: DIFF IND NO
[2016-10-08 14:11] LABS: CALCIUM SERUM 9.3 mg/dL (8.4-10.2); GLOM FILT RATE Estimated 57.5 mL/min (>60); POTASSIUM 4.2 mmol/L (3.5-5.1)
[2016-10-09 01:16] LABS: ANGIO %MB 11.3 % (0.0-4.0); ANGIO MB 19.4 ng/ml
[2016-10-09 06:59] LABS: CALCIUM SERUM 8.7 mg/dL (8.4-10.2); GLOM FILT RATE Estimated 57.5 mL/min (>60); MAGNESIUM 1.7 mg/dL (1.6-3.0); POTASSIUM 4.4 mmol/L (3.5-5.1)
[2016-10-09 09:14] LABS: HEMATOCRIT 37.8 % (35.0-45.0); HEMOGLOBIN 12.1 gm/dL (12.0-16.0); MEAN CELL VOLUME 101.3 FL (83-96); MEAN CORPUSCULAR HEMOGLOBIN 32.4 PG (28-34); MEAN PLATELET VOLUME 8.1 FL (6.5-11.5); RED BLOOD COUNT 3.74 X10e (3.90-5.30); RED CELL DISTRIBUTION WIDTH 14.2 % (11.0-15.5); WHITE BLOOD COUNT 5.5 X10e3 (4.0-10.5)
[2016-10-09 09:50] LABS: %MB 10.9 % (0.0-4.0); MB 10.8 ng/ml
[2016-10-10 06:25] LABS: BUN/CREATININE RATIO 21.53; CALCIUM SERUM 8.6 mg/dL (8.4-10.2); CREATININE SERUM 1.3 mg/dL (0.6-1.4); GLOM FILT RATE Estimated 41.8 mL/min (>60); MAGNESIUM 1.8 mg/dL (1.6-3.0); POTASSIUM 4.2 mmol/L (3.5-5.1)
[2016-10-11 06:02] LABS: BASOPHIL% 0.5 % (0-2.5); EOSINOPHIL# 0.3 X10e3 (0-0.7); EOSINOPHIL% 4.9 % (0.0-7.0); HEMATOCRIT 30.5 % (35.0-45.0); HEMOGLOBIN 10.2 gm/dL (12.0-16.0); LYMPHOCYTE# 1.6 X10e3 (1.0-3.5); LYMPHOCYTE% 31.6 % (17.0-45.0); MEAN CELL VOLUME 98.8 FL (83-96); MEAN CORPUSCULAR HEMOGLOBIN 32.9 PG (28-34); MEAN CORPUSCULAR HGB CONC 33.3 g/dL (30-36); MEAN PLATELET VOLUME 8.2 FL (6.5-11.5); MONOCYTE# 0.5 X10e3 (0-1.0); MONOCYTE% 9.8 % (3.0-12.0); NEUTROPHIL# 2.7 X10e3 (1.5-7.1); NEUTROPHIL% 53.2 % (40-75); PLATELET COUNT 167 X10e3 (140-420); RED BLOOD COUNT 3.09 X10e (3.90-5.30); RED CELL DISTRIBUTION WIDTH 13.8 % (11.0-15.5); WHITE BLOOD COUNT 5.2 X10e3 (4.0-10.5)
[2016-10-11 06:27] LABS: DIFF IND NO
[2016-10-11 07:06] LABS: ALBUMIN SERUM 3.2 g/dL (3.5-5.0); BILIRUBIN,TOTAL 0.1 mg/dL (0.2-2.0); BUN/CREATININE RATIO 24.54; CALCIUM SERUM 8.7 mg/dL (8.4-10.2); CREATININE SERUM 1.1 mg/dL (0.6-1.4); GLOM FILT RATE Estimated 51.2 mL/min (>60); MAGNESIUM 1.8 mg/dL (1.6-3.0); POTASSIUM 4.5 mmol/L (3.5-5.1); PROTEIN TOTAL SERUM 5.9 g/dL (6.0-8.3)
[2016-10-12 05:53] LABS: BASOPHIL% 0.4 % (0-2.5); EOSINOPHIL# 0.2 X10e3 (0-0.7); EOSINOPHIL% 3.7 % (0.0-7.0); HEMATOCRIT 35.1 % (35.0-45.0); HEMOGLOBIN 11.5 gm/dL (12.0-16.0); LYMPHOCYTE# 1.2 X10e3 (1.0-3.5); LYMPHOCYTE% 21.7 % (17.0-45.0); MEAN CELL VOLUME 99.2 FL (83-96); MEAN CORPUSCULAR HEMOGLOBIN 32.6 PG (28-34); MEAN CORPUSCULAR HGB CONC 32.9 g/dL (30-36); MEAN PLATELET VOLUME 8.4 FL (6.5-11.5); MONOCYTE# 0.4 X10e3 (0-1.0); MONOCYTE% 7.6 % (3.0-12.0); NEUTROPHIL# 3.7 X10e3 (1.5-7.1); NEUTROPHIL% 66.6 % (40-75); PLATELET COUNT 195 X10e3 (140-420); RED BLOOD COUNT 3.54 X10e (3.90-5.30); RED CELL DISTRIBUTION WIDTH 13.7 % (11.0-15.5); WHITE BLOOD COUNT 5.5 X10e3 (4.0-10.5)
[2016-10-12 06:03] LABS: DIFF IND NO
[2016-10-12 06:47] LABS: ALBUMIN SERUM 3.7 g/dL (3.5-5.0); BILIRUBIN,TOTAL 0.6 mg/dL (0.2-2.0); BUN/CREATININE RATIO 20.83; CREATININE SERUM 1.2 mg/dL (0.6-1.4); GLOM FILT RATE Estimated 46.1 mL/min (>60); POTASSIUM 4.1 mmol/L (3.5-5.1)
[2016-10-15] MEDS ORDERED: NORVASC PO (12:04)
[2016-10-15] MEDS ORDERED: NITROGLYGERIN0.4 MG SL (12:04)
[2016-10-15] MEDS ORDERED: PRINIVIL10 MG PO (12:05)
[2016-10-15] MEDS ORDERED: BRILINTA90 MG PO (12:06)
[2016-10-15 12:28] LABS: BUN/CREATININE RATIO 22.3; CALCIUM SERUM 9.1 mg/dL (8.4-10.2); CREATININE SERUM 1.3 mg/dL (0.6-1.4); GLOM FILT RATE Estimated 41.8 mL/min (>60); POTASSIUM 4.1 mmol/L (3.5-5.1)
== END 2016-10-15 13:47 | disposition home or self-care (01) | DRG 247 ==
LOC: CED 18:37 → CICCU3 20:30 → CEDOF 20:30 → CICCU3 20:44 → CED 20:44 → CEDOF 23:16 → CICCU3 23:16 → C5C 10-12 09:00
PROVIDERS: Emergency Medicine; Internal Medicine; Internal Medicine Cardiovascular Disease
PROC: 027034Z Dilation of Coronary Artery, One Artery with Drug-eluting Intraluminal Device, Percutaneous Approach (ICD-10-PCS; 2016-10-08)
PROC: 4A023N7 Measurement of Cardiac Sampling and Pressure, Left Heart, Percutaneous Approach (ICD-10-PCS; 2016-10-08)
PROC: B211YZZ Fluoroscopy of Multiple Coronary Arteries using Other Contrast (ICD-10-PCS; 2016-10-08)
PROC: B215YZZ Fluoroscopy of Left Heart using Other Contrast (ICD-10-PCS; 2016-10-08)
PROC: B24BYZZ Ultrasonography of Heart with Aorta using Other Contrast (ICD-10-PCS; 2016-10-09)
PROC: 0DJ08ZZ Inspection of Upper Intestinal Tract, Via Natural or Artificial Opening Endoscopic (ICD-10-PCS; principal; 2016-10-13 11:54)
DX: I21.4 Non-ST elevation (NSTEMI) myocardial infarction (principal); E11.21 Type 2 diabetes mellitus with diabetic nephropathy; I13.0 Hypertensive heart and chronic kidney disease with heart failure and stage 1 through stage 4 chronic kidney disease, or unspecified chronic kidney disease; I50.32 Chronic diastolic (congestive) heart failure; E11.22 Type 2 diabetes mellitus with diabetic chronic kidney disease; E78.5 Hyperlipidemia, unspecified; F31.9 Bipolar disorder, unspecified; F41.9 Anxiety disorder, unspecified; I25.10 Atherosclerotic heart disease of native coronary artery without angina pectoris; Z90.49 Acquired absence of other specified parts of digestive tract; Z98.51 Tubal ligation status; Z88.2 Allergy status to sulfonamides; Z79.82 Long term (current) use of aspirin; Z79.4 Long term (current) use of insulin; K21.9 Gastro-esophageal reflux disease without esophagitis; K59.00 Constipation, unspecified; K29.70 Gastritis, unspecified, without bleeding; I86.4 Gastric varices; E11.42 Type 2 diabetes mellitus with diabetic polyneuropathy; R00.1 Bradycardia, unspecified; K83.8 Other specified diseases of biliary tract; N18.9 Chronic kidney disease, unspecified
CPT/HCPCS: 71010; 76705; 80048; 80053; 80061; 80076; 82150; 82550; 82553; 82947; 83036; 83690; 83735; 83880; 84443; 84484; 85025; 85027; 85347; 85610; 85730; 86140; 93005; 93306; 94760; 94761; 99291; C1725; C1769; C1874; C1887; C1894; C9113; J0461; J1644; J1815; J2250; J2270; J2405; J3010

== ENCOUNTER 2016-11-30 11:54 | Observation (INO) | payer OTHER, MEDICARE ==
[~2016-11-30] VITALS: Ht 152.4 cm; Wt 67.0 kg
--- NOTE | ~2016-11-30 | EKG ---
PATIENT: SAE ORTEGA UNIT #: [id number] Ventricular Rate: 52 BPM Atrial Rate: 52 BPM P-R Interval: 150 ms QRS Duration: 92 ms Q-T Interval: 424 ms QTC Calculation(Bezet): 394 ms P [place]: 37 degrees Calculated R [place]: -15 degrees Calculated T [place]: 68 degrees Diagnosis Line: Sinus bradycardia Diagnosis Line: Otherwise normal ECG Diagnosis Line: When compared with ECG of 11-OCT-2016 05:56, Diagnosis Line: Nonspecific T wave abnormality has replaced Diagnosis Line: inverted T waves in Lateral leads Diagnosis Line: Confirmed by ROBBY BARONE MD ([id number]) on Diagnosis Line: 11/30/2016 3:33:30 PM INTERPRETING MD: KJ
--- NOTE | ~2016-11-30 | CR72 ---
[facility] A Service of [facility] RADIOLOGY TEXT RESULTS PATIENT: SAE ORTEGA LOCATION: [place] [address] : [birth year] UNIT #: [id number] AGE: [address]: Fouzia Miller MD SEX: F ORDER DR: [id number] [facility]. [place], [place] [address] [id number] I MR#: [id number] #: [id number] NAME: SAE ORTEGA. : 1945 SEX: F STUDY DATE/TIME: 11/30/2016 13:05 UNIT: CEDOF ROOM: [id number] STUDY DESCRIPTION: CR Chest Single View Portable Attending Physician: Fouzia Miller M.D. Ordering Physician: Bony Herbert M.D. Primary Care Physician: Amirah Fernandez M.D. MEDICAL IMAGING REPORT This report is preliminary unless electronic signature is present EXAM Portable chest x-ray, 11/30/2016. HISTORY Short of air. Left-side chest pain. Symptoms began today. TECHNIQUE AP radiograph of the chest is presented. COMPARISON 10/07/2016 FINDINGS Heart upper limits of normal in size, stable. The lungs are well inflated without evidence of acute infectious or inflammatory disease, pleural effusion, or pneumothorax. No suspicious nodule. The bony structures show degenerative changes in the spine, stable. No acute-appearing bony abnormality. Dictated by... Fer Ferris M.D. THIS IS AN ELECTRONICALLY VERIFIED REPORT Fer Ferris M.D. at 12/02/2016 2:47 PM HUEY/sobeida TD: 11/30/2016 16:54 JOB #: [id number] MEDICAL IMAGING REPORT [facility] A Service of [facility] RADIOLOGY TEXT RESULTS PATIENT: SAE ORTEGA LOCATION: [facility] [address] : [birth year] UNIT #: [id number] AGE: [address]: Fouzia Miller MD SEX: F ORDER DR: Page 1 of 1 COPY
--- NOTE | ~2016-11-30 | EKG ---
PATIENT: SAE ORTEGA UNIT #: [id number] Ventricular Rate: 48 BPM Atrial Rate: 48 BPM P-R Interval: 168 ms QRS Duration: 90 ms Q-T Interval: 446 ms QTC Calculation(Bezet): 398 ms P [place]: 61 degrees Calculated R [place]: -7 degrees Calculated T [place]: 64 degrees Diagnosis Line: Marked sinus bradycardia Diagnosis Line: Abnormal ECG Diagnosis Line: No previous ECGs available Diagnosis Line: Confirmed by ROBBY BARONE MD ([id number]) on Diagnosis Line: 12/01/2016 10:38:33 PM INTERPRETING MD: KJ
--- NOTE | ~2016-11-30 | HP ---
Unit #: [id number] #: [id number] Patient: SAE ORTEGA [id number] [place], [place] [address] [id number] I MR#: [id number] NAME: SAE ORTEGA. ROOM: [facility] Age: 71 Sex: F Admission Date: 11/30/2016 : 1945 Attending Physician: Fouzia Miller M.D. Primary Care Physician: Amirah Fernandez M.D. HISTORY AND PHYSICAL HISTORY OF PRESENT ILLNESS This is a 71-year-old white female known to Dr. Leonard with a past medical history of recent admission to [facility] October 07-2016 for an NSTEMI. The patient was taken for cardiac catheterization on October 08, 2016. She was found to have a patent stent in the LAD. There was a 99% stenosis in the mid left circumflex which was the culprit lesion. She underwent PCI and drug-eluting stent placement in the obtuse marginal one as well as a plain old angioplasty of the mid left circumflex and kissing balloon and stents to the mid left circumflex/obtuse marginal one. After the procedure she had some chest pain/epigastric pain. Gastroenterology was consulted. She was taken for an EGD on October 13, 2016 which revealed mild gastritis and early gastric varices. Additional past medical history includes hypertension, hyperlipidemia, diabetes mellitus, chronic kidney disease and obstructive sleep apnea. The patient presented to the emergency department today with recurrent complaints of chest pain. She states that over the last several days she has had intermittent episodes of sharp stabbing pain. The pain is located in the left anterior chest. Initially she denied any radiation to the neck, jaw, shoulders or arms. She denies nausea, vomiting or diaphoresis. With the episodes of sharp pain she has also been short of breath. The shortness of breath is with rest and exertion. It also has an evening component. She admits to sleeping with one pillow. There are no reports of peripheral edema. She denies fever but did have one episode of chills. She is congested but has not had any significant cough. She admits to occasional palpitations but nothing sustained. There are no reports of dizziness or syncope. She states that she has been compliant with all of her medications including aspirin and Brilinta. She denies tobacco abuse. In the emergency department initial EKG revealed sinus bradycardia with a ventricular rate of 52 beats per minute. There were no acute ST or T-wave changes. Initial point of care troponin was negative. Chemistry was normal. CBC was unremarkable. She was given the option of discharge but was adamant to be admitted. Upon further discussion with the patient she started to complain of jaw pain though she initially denied this. She also states that she has had numbness all over her body. She woke up this morning with generalized numbness but had no other deficits at that time. The numbness resolved. She appears to be resting comfortably. She will be admitted overnight for observation and then can likely be discharged tomorrow. PAST MEDICAL HISTORY Unit #: [id number] #: [id number] Patient: SAE ORTEGA 1. Recent admission to [facility] 10/07 through 10/15/2016 for an NSTEMI. 2. Coronary artery disease, status post cardiac catheterization October 08, 2016 revealed: Left main normal. Patent stent in LAD. Mid left circumflex 99%, culprit vessel. Right coronary artery normal. Status post PCI and drug-eluting stent in the obtuse marginal one. Plain old balloon angioplasty of the mid left circumflex with kissing balloon and stents in the mid left circumflex/obtuse marginal one. 3. Two-D echocardiogram October 09, 2016 revealed an ejection fraction of 50% to 55%. Impaired LV relaxation. 4. History of PCI and stent in the LAD and obtuse marginal one March 05, 2016. 5. EGD 10/13/2016 revealed mild gastritis. Early gastric varices. 6. History of Jerez esophagus and dilation of esophagus in 2013. 7. Asymptomatic bradycardia. 8. Hypertension. 9. Hyperlipidemia. 10. Diabetes mellitus type 2. 11. Chronic kidney disease. Follows with Dr. Ramirez. Creatinine 0.9 currently. 12. Obstructive sleep apnea. 13. History of bipolar disorder. 14. Reformed tobacco abuse. PAST SURGICAL HISTORY 1. Cardiac catheterization, PCI and stents as noted above. 2. EGD October 13, 2016 with mild gastritis and early esophageal varices. 3. Back surgery. 4. Cervical conization. 5. Cholecystectomy. 6. Tubal ligation. 7. Previous EGD and esophageal dilation 2013. 8. Previous colonoscopy in 2011 with colon polyps, moderate diverticulosis and a small nonbleeding grade I internal hemorrhoid. HOME MEDICATIONS List of home medications to be reviewed. According to discharge summary October 15, 2016 patient's medications included: 1. Aspirin 81 mg p.o. daily. 2. Brilinta 90 mg p.o. b.i.d. 3. Nexium 40 mg p.o. t.i.d. 4. Imdur 30 mg p.o. daily. 5. Nitroglycerin sublingual p.r.n. for chest pain. 6. Norvasc 5 mg p.o. daily. 7. Jentadueto 2.5 mg/1000 mg p.o. b.i.d. 8. Ditropan 5 mg p.o. b.i.d. 9. Lisinopril 10 mg p.o. daily. 10. Humalog subcu a.c. and h.s. ALLERGIES Sulfa, naproxen. SOCIAL HISTORY The patient lives in a private residence. She is a reformed smoker. There are no reports of alcohol or illicit drug use. FAMILY HISTORY Family history is significant for diabetes in her mother. Her father had Unit #: [id number] #: [id number] Patient: SAE ORTEGA a permanent pacemaker. Her sister had a PFO that was repaired. There is no report of coronary artery disease in the family. REVIEW OF SYSTEMS A 10-point review of systems is negative except for details noted above in HPI. PHYSICAL EXAMINATION VITAL SIGNS: Temperature 97.8. Pulse 58. Blood pressure 125/72. CONSTITUTIONAL: This is a 71-year-old white female in no acute distress. SKIN: Skin is warm and dry. NECK: Neck is supple. No jugular vein distention. No hepatojugular reflux. Normal carotid upstrokes. No carotid bruits auscultated. HEART: S1, S2. Regular rate and rhythm. No murmurs, rubs or gallops. LUNGS: Bilateral breath sounds have good air entry throughout all lung rangel. Respirations even and unlabored. No rales, rhonchi or wheezes. ABDOMEN: Soft, nontender and nondistended. Positive bowel sounds auscultated x4 quadrants. No ascites noted. EXTREMITIES: Bilateral lower extremities have no pretibial pitting edema. DP and PT pulses 2+. Capillary refill less than two seconds. DIAGNOSTIC STUDIES LABORATORY: White blood cell count 4.7, hemoglobin 12.9, hematocrit 38.3, platelets 234, sodium 140, potassium 4.3, chloride 105, CO2 26, BUN 16, creatinine 0.9, glucose 141, total protein 8, albumin 4.4, LFTs normal, point of care troponin 0.05, BNP 15. IMAGING: Chest x-ray reveals no acute findings. CARDIOVASCULAR: EKG reveals sinus bradycardia with a ventricular rate of 52 beats per minute. No acute ST or T wave changes. QTc 394 msec. IMPRESSION 1. Chest pain. 2. Dyspnea with questionable etiology. 3. Anxiety. 4. Coronary artery disease with recent non-ST elevated myocardial infarction, status post percutaneous coronary intervention and stents in the mid left circumflex and first obtuse marginal October 08, 2016. 5. Previous percutaneous coronary intervention and stent in the left circumflex and left anterior descending in February 2016. 6. Left ventricular ejection fraction of 55% with impaired left ventricular relaxation per two-dimensional echocardiogram September 2016. 7. Recent EGD October 13, 2016 with mild gastritis and early gastric varices. 8. Hypertension. 9. Hyperlipidemia. 10. Diabetes mellitus. PLAN 1. The patient presented to the hospital with complaints of shortness of breath and chest pain. Initial cardiac enzymes are negative and EKG reveals no acute findings. 2. Patient will be admitted for further observation. Will trend cardiac enzymes and EKG. 3. She will be continued on dual antiplatelet therapy with aspirin and Brilinta. She will be restarted on CHRISTINE inhibitor, calcium channel sony and nitrate. Fasting lipid profile will be obtained. [facility] Unit #: [id number] #: [id number] Patient: SAE ORTEGA will need statin therapy due to known coronary artery disease as well as diabetes. 4. There is no evidence of congestive heart failure or pneumonia on chest x-ray. 5. If the patient's enzymes and EKG remain negative she can likely be discharged home tomorrow. Dictated by Latoya Stafford APRN for Tobias Borrero/sheila TD: 11/30/2016 18:43 JOB #: [id number] HISTORY AND PHYSICAL Page 1 of 1 X X HISTORY AND PHYSICAL
[~2016-11-30 11:54] MED LIST changes: +ASPIRIN81 MG PO; +BRILINTA90 MG PO; +CLOPIDOGREL75 MG PO; +COREG3.125 M1 PO; +DITROPAN5 MG PO; +HUMALOG100 UNIT/1 SUBQ; +HYDROCHLOROTHIA25 MG PO; +IMDUR-ER30 M1 PO; +LAMICTAL100 MG PO; +LIPITOR80 MG PO; +NITROGLYGERIN0.4 MG SL; +NORVASC PO; +PRINIVIL10 MG PO; +ZOFRAN ODT4 MG SL
[2016-11-30 13:09] LABS: BASOPHIL% 0.8 % (0-2.5); EOSINOPHIL# 0.1 X10e3 (0-0.7); EOSINOPHIL% 3.2 % (0.0-7.0); HEMATOCRIT 38.3 % (35.0-45.0); HEMOGLOBIN 12.9 gm/dL (12.0-16.0); LYMPHOCYTE# 1.5 X10e3 (1.0-3.5); LYMPHOCYTE% 33.1 % (17.0-45.0); MEAN CELL VOLUME 98.4 FL (83-96); MEAN CORPUSCULAR HEMOGLOBIN 33.1 PG (28-34); MEAN CORPUSCULAR HGB CONC 33.7 g/dL (30-36); MEAN PLATELET VOLUME 7.9 FL (6.5-11.5); MONOCYTE# 0.3 X10e3 (0-1.0); MONOCYTE% 6.8 % (3.0-12.0); NEUTROPHIL# 2.6 X10e3 (1.5-7.1); NEUTROPHIL% 56.1 % (40-75); PLATELET COUNT 234 X10e3 (140-420); RED BLOOD COUNT 3.89 X10e (3.90-5.30); WHITE BLOOD COUNT 4.7 X10e3 (4.0-10.5)
[2016-11-30 13:12] LABS: DIFF IND NO
[2016-11-30 13:12] LABS: POC - CKMB <1.0 ng/mL (0.0-7.9); POC - TROPONIN <0.05 ng/mL (<=0.05)
[2016-11-30 13:34] LABS: ALBUMIN SERUM 4.4 g/dL (3.5-5.0); BILIRUBIN, DIRECT 0.1 mg/dL (0.0-0.2); BILIRUBIN,INDIRECT 0.4 mg/dL (0.0-0.9); BILIRUBIN,TOTAL 0.5 mg/dL (0.2-2.0); BUN/CREATININE RATIO 17.77; CALCIUM SERUM 9.7 mg/dL (8.4-10.2); CREATININE SERUM 0.9 mg/dL (0.6-1.4); GLOM FILT RATE Estimated 65.3 mL/min (>60); POTASSIUM 4.3 mmol/L (3.5-5.1)
[2016-11-30] MEDS ORDERED: PATIENT'S PHARMACY (17:37)
[2016-11-30] MEDS ORDERED: ASPIRIN81 M2 PO (17:38)
[2016-11-30] MEDS ORDERED: LAMICTAL PO (17:38)
[2016-11-30] MEDS ORDERED: BRILINTA90 MG PO (17:38)
[2016-11-30] MEDS ORDERED: NORVASC PO (17:38)
[2016-11-30] MEDS ORDERED: LIPITOR80 MG PO (17:38)
[2016-11-30] MEDS ORDERED: DESYREL100 MG PO (17:39)
[2016-11-30] MEDS ORDERED: LISINOPRIL PO (17:39)
[2016-11-30] MEDS ORDERED: IMDUR PO (17:39)
[2016-11-30] MEDS ORDERED: NITROGLYCERIN0.4 MG PO (17:39)
[2016-11-30] MEDS ORDERED: LOMOTIL 2.5-0.1 EACH PO (17:39)
[2016-11-30] MEDS ORDERED: ABILIFY2 MG PO (17:39)
[2016-12-01 07:45] LABS: CHOLESTEROL 109 mg/dL (0-200); HDL CHOLESTEROL 35 mg/dL (35-95); LDL CHOLESTEROL 47 mg/dL ([, -130]); LDL/HDL RATIO 1 RATIO (0-4); TRIGLYCERIDES 135 mg/dL (10-160)
[2016-12-01] MEDS ORDERED: ALBUTEROL17 GM INH (11:56)
== END 2016-12-01 13:50 | disposition home or self-care (01) | DRG 313 ==
LOC: CED 11:54 → CEDOF 15:29 → C5C 16:13 → CED 16:13 → CEDOF 17:56 → C5C 17:56
PROVIDERS: Emergency Medicine; Internal Medicine Cardiovascular Disease
DX: R07.9 Chest pain, unspecified (principal); R06.00 Dyspnea, unspecified; F41.9 Anxiety disorder, unspecified; I25.10 Atherosclerotic heart disease of native coronary artery without angina pectoris; I25.2 Old myocardial infarction; I10 Essential (primary) hypertension; E78.5 Hyperlipidemia, unspecified; E11.9 Type 2 diabetes mellitus without complications; G47.33 Obstructive sleep apnea (adult) (pediatric); Z95.5 Presence of coronary angioplasty implant and graft; Z87.19 Personal history of other diseases of the digestive system; Z79.82 Long term (current) use of aspirin; Z79.899 Other long term (current) drug therapy
CPT/HCPCS: 36415; 71010; 80048; 80061; 80076; 82553; 82947; 83880; 84484; 85025; 93005; 94760; 99285; G0378; J1815

== ENCOUNTER → 2017-01-06 | Outpatient (CLI) | payer MEDICARE, OTHER ==
[~2017-01-06] MED LIST changes: +ABILIFY2 MG PO; +ASPIRIN81 M2 PO; +IMDUR PO; +LAMICTAL PO; +LOMOTIL 2.5-0.1 EACH PO; +NITROGLYCERIN0.4 MG PO; +PATIENT'S PHARMACY
[2017-01-06 16:32] LABS: CREATININE,RANDOM URINE 151 mg/dL; TOTAL PROTEIN,RANDOM URINE 18 mg/dl (<10)
[2017-01-06 16:42] LABS: CALCIUM SERUM 9.7 mg/dL (8.4-10.2); GLOM FILT RATE Estimated 57.5 mL/min (>60); PHOSPHOROUS 3.8 mg/dL (2.5-4.6); POTASSIUM 4.1 mmol/L (3.5-5.1)
== END | disposition home or self-care (01) ==
LOC: CLAB 15:19
PROVIDERS: Internal Medicine Nephrology
DX: N18.3 Chronic kidney disease, stage 3 (moderate) (principal)
CPT/HCPCS: 36415; 80048; 82570; 84100; 84156